=== PATIENT | male | born 1990 | race African-American/Black ===

== ENCOUNTER 2017-09-06 21:08 | Emergency (ER) | payer SELFPAY ==
--- NOTE | 2017-09-06 22:34 | RAD ---
RIGHT ANKLE RADIOGRAPH 09/06/17 HISTORY: Right ankle pain and injury. AP, lateral, and oblique views right ankle is obtained. Three views right ankle demonstrates a small calcaneal spur. No evidence of right ankle fractures, martinez bluxations or bony lesions seen. IMPRESSION: Normal three views right ankle. POS: [facility]
== END 2017-09-06 22:40 | disposition home or self-care (01) ==
LOC: ERS 21:08
DX: L03.115 Cellulitis of right lower limb (principal)